=== PATIENT | female | born 1945 | race Caucasian/White ===

== ENCOUNTER 2018-12-30 04:50 | Inpatient (IN) ==
--- NOTE | 2018-12-20 09:29 | PAT Medication Instructions ---
Medication Instructions Date of Service December 20, 2018 Home Medications cholecalciferol (vitamin D3) 3 cap PO DAILY cyanocobalamin (vitamin B-12) 2,500 mcg SUBLINGUAL DAILY furosemide 25 mg PO UD PRN ibuprofen [Advil] 200 mg PO UD PRN losartan 50 mg PO QAM meclizine 25 mg PO DAILY PRN polyethylene glycol 3350 [Miralax] 17 g PO DAILY sennosides [Senokot] 2 tab PO HS PRN ASK your surgeon for instructions ibuprofen [Advil] 200 mg PO UD PRN DO NOT take the morning of surgery cholecalciferol (vitamin D3) 3 cap PO DAILY cyanocobalamin (vitamin B-12) 2,500 mcg SUBLINGUAL DAILY furosemide 25 mg PO UD PRN losartan 50 mg PO QAM polyethylene glycol 3350 [Miralax] 17 g PO DAILY Take morning of surgery With a small sip of water, OTHERWISE NOTHING TO EAT OR DRINK AFTER MIDNIGHT: meclizine 25 mg PO DAILY PRN (if needed) Take evening before surgery furosemide 25 mg PO UD PRN (if needed) meclizine 25 mg PO DAILY PRN (if needed) sennosides [Senokot] 2 tab PO HS PRN (if needed) Other Notes If you have any questions please call us at [phone] or [phone] or [phone] or [phone]
--- NOTE | 2018-12-20 10:12 | Anesthesiology Consultation ---
Date of Service December 20, 2018 Assessment & Plan (1) Encounter for pre-operative examination: - Patient anxious RE: SAB; discussed SAB vs. GA with patient. - PCP= 12/18/18= Elevated BP; losartan dose increased and patient recommended to monitor BP's. "Pt is medically cleared" - Cardio= 10/15/18= amlodipine discontinued and losartan/lasix initiated 2/2 leg edema [which has improved since med changes per evaluation at PAT visit subsequently]. Chart Review Chart Review: Acceptable Risk for Surgery and Patient seen in Pre Admission Testing Teaching & Discussion Pre-Anesthesia Teaching/Discussion Notes: Instructed NPO after midnight before surgery,except medications with 15 cc of water. Medication instructions provided according to the [facility] guidelines. History Surgery Operation Date: 12/30/18 14:00 Proposed Procedures p Right Total Knee Arthroplasty - Deangelo Connor MD Height/Weight Height: 5 ft 3 in Weight: 93.6 kg Allergies Allergy/AdvReac Type Severity Reaction Status Date / Time No Known Allergies Allergy Verified 12/16/18 08:54 Medications Home Medications Medication Instructions Recorded Confirmed Last Taken cholecalciferol (vitamin D3) 3 cap PO DAILY 12/16/18 12/16/18 Unknown [Vitamin D3] cyanocobalamin (vitamin B-12) 2,500 mcg SUBLINGUAL DAILY 12/16/18 12/16/18 Unknown [Vitamin B-12] furosemide 25 mg PO UD PRN 12/16/18 12/16/18 Unknown ibuprofen [Advil] 200 mg PO UD PRN 12/16/18 12/16/18 Unknown losartan 100 mg PO QAM 12/16/18 12/20/18 Unknown meclizine 25 mg PO DAILY PRN 12/16/18 12/16/18 Unknown polyethylene glycol 3350 [Miralax] 17 g PO DAILY 12/16/18 12/16/18 Unknown sennosides [Senokot] 2 tab PO HS PRN 12/16/18 12/16/18 Unknown Past Medical History Medical History Acid reflux CONTROLLED Bone spur of foot LEFT S/P CORTISONE INJECTION 12/06/18 H. pylori infection HX (2017) History of kidney stones History of pneumonia 10/2018 "RESOLVED" S/P ABX- F/U CXR UNREMARKABLE History of sleep apnea DX 20 YRS AGO BUT MORE RECENT SLEEP STUDY WAS "NORMAL" PER PT Hypertension Obesity Osteoarthritis Past Family History Family History Father Family history of bone cancer Brother Family history of colon cancer Sister Family history of thyroid cancer Other Family history of breast cancer in mother Past Surgical History Surgical History History of appendectomy History of colonoscopy History of dilatation and curettage History of gynecologic surgery ENTEROCELE REPAIR History of hysterectomy HYSTERECTOMY, RECTOCELE REPAIR AND BLADDER MESH Past Anesthesia History No Hx of Anesthesia Complications (EXCEPT PONV) and Other Son, sister, brother- PONV* History of PONV Yes Motion Sickness Screening History of Motion Sickness: Yes Social History Smoking Status: Never smoker Do You Dip or Chew Tobacco: No Hx Alcohol Use: No Hx Substance Use: No substance use type: does not use Exercise / Class Metabolic Activity II 4-5 Yardwork/Stairs/Walk up hill Review of Systems Patient denies chest pain, shortness of breath, dyspnea on exertion, cough, wheezing, palpitations. Physical Exam Vital Signs VITALS BP 144/91 P 81 TEMP 98.3 SP02 93%RA RESP 18 PHYSICAL Full neck and c-spine range of motion. Full TMJ range of motion. TMD 2.5 finger breaths Mallampati Score 1 Dentition: full dentures upper/lower; edentulous Lungs: clear throughout to auscultation Cardiac: regular rate and rhythm, no murmurs noted Spine: normal Carotid arteries: negative bruit Extremities: no edema Testing Electrocardiogram Date: 12/20/18 Findings: + NSR @ (70) Chest X-Ray Date: 11/11/18 Findings: + NAD Interval resolution of RLL pneumonitis from 10/19/18 CXR Echocardiogram Date: 12/26/17 EF 55%. No significant valvular disease. Stress Test Date: 12/26/17 Type: nuclear (Lexiscan) No evidence of myocardial ischemia or infarct. Lexiscan stress EKG was negative for myocardial ischemia. Study limited 2/2 significant breast attenuation. Baseline EKG with cannot rule out anterior IA per report. Laboratory Results 12/20/18 10:58 12/20/18 10:58 Blood Type B Positive 12/20/18 10:58 Antibody Screen NEGATIVE 12/20/18 10:58 PT 10.2 Seconds (9.0-12.0) 12/20/18 10:58 INR 1.0 (0.9-1.1) 12/20/18 10:58 APTT 23.6 Seconds (21.0-31.0) 12/20/18 10:58 Hemoglobin A1c 5.6 % (4.5-5.6) 12/20/18 10:58 Urine Color Yellow 12/20/18 10:58 Urine Appearance Clear (Clear) 12/20/18 10:58 Urine pH 7.0 (4.5-7.5) 12/20/18 10:58 Ur Specific [place] 1.012 (1.000-1.030) 12/20/18 10:58 Urine Protein Negative (Negative) 12/20/18 10:58 Urine Glucose (UA) Negative (Negative) 12/20/18 10:58 Urine Ketones Negative (Negative) 12/20/18 10:58 Urine Nitrite Negative (Negative) 12/20/18 10:58 Ur Leukocyte Esterase Negative (Negative) 12/20/18 10:58
[2018-12-20 12:21] LABS: Basophils # (auto) 0.03 K/uL (0-0.2); Basophils % (auto) 0.7 %; Eosinophils # (auto) 0.08 K/uL (0-0.5); Eosinophils % (auto) 1.8 %; Hematocrit (blood only) 42.4 % (37-47); Hemoglobin 13.9 g/dL (12.0-16.0); Immature Granulocytes # (auto) 0.01 K/uL (0.00-0.02); Immature Granulocytes % (auto) 0.2 %; Lymphocytes # (auto) 1.36 K/uL (1.2-3.4); Lymphocytes % (auto) 29.9 %; Mean Corpuscular Hgb Conc 32.8 g/dL (32-36); Mean Corpuscular Volume 88.7 fL (80-100); Mean Platelet Volume 9.9 fL (7.4-10.4); Monocytes # (auto) 0.32 K/uL (0.11-0.59); Neutrophils # (auto) 2.75 K/uL (1.4-6.5); Neutrophils % (auto) 60.4 %; Platelet Count 329 K/uL (130-400); RDW Standard Deviation 41.8 fL (36.4-46.3); Red Blood Count 4.78 M/uL (4.2-5.4); White Blood Count 4.55 K/uL (4.8-10.8)
[2018-12-20 12:30] LABS: Albumin Level 3.9 gm/dl (3.4-5.0); BUN Creatinine Ratio 28.7 (10-20); Calcium 9.9 mg/dl (8.5-10.1); Creatinine Clr Calc Pharmacy 95.8 ml/min; Est GFR (African American) 106.5; Est GFR (Non-African American) 91.9; Potassium 4.8 mmol/L (3.5-5.1)
[2018-12-20 12:32] LABS: Appearance Urine Clear (Clear); Bilirubin Urine Negative (Negative); Blood Urine Negative (Negative); Color Urine Yellow; Glucose Urine UA Negative (Negative); Ketones Urine Negative (Negative); Leukocyte Esterase Urine Negative (Negative); Nitrite Urine Negative (Negative); Protein Urine Negative (Negative); Specific Gravity Urine 1.012 (1.000-1.030); Urobilinogen Urine Negative (Negative)
[2018-12-20 12:33] LABS: Partial Thromboplastin Ratio 0.9; Partial Thromboplastin Time 23.6 Seconds (21.0-31.0); Prothrombin Time 10.2 Seconds (9.0-12.0)
[2018-12-20 12:37] LABS: Estimated Average Glucose 114 mg/dl; Hemoglobin A1C 5.6 % (4.5-5.6)
--- NOTE | 2018-12-29 13:06 | History and Physical Report ---
DATE OF ADMISSION: 12/30/2018 CHIEF COMPLAINT: Chronic right knee pain. HISTORY OF PRESENT ILLNESS: This is a 73-year-old female patient of Dr. Connor'domenico complaining of chronic right knee pain, longstanding, now progressively getting worse. The patient has failed conservative treatment including intraarticular injections, anti-inflammatory aqua therapy and the use of a wrap. The patient has increased pain with weightbearing activities and her pain does interfere with her activities of daily living. The patient has been diagnosed with end-stage osteoarthritis per clinical and radiographic exam and the patient wished to proceed with a right total knee arthroplasty. PAST MEDICAL HISTORY: Hypertension, hypercholesterolemia, pneumonia approximately 2 months ago, diabetes mellitus, osteoarthritis, kidney stones, acid reflux, dentures. SOCIAL HISTORY: Nonsmoker, nondrinker. PAST SURGICAL HISTORY: History of enterocele surgery, cystocele, rectocele, hysterectomy. FAMILY HISTORY: Noncontributory. REVIEW OF SYSTEMS: Chronic right knee pain and instability. Otherwise, denies any shortness of breath, chest pain, nausea, vomiting or any other new joint complaints. FAMILY HISTORY: Noncontributory. MEDICATIONS: 1. Vitamin D3 2000 units daily. 2. Vitamin B12 with folic acid daily. 3. Losartan 50 mg daily. 4. Furosemide 20 mg daily. 5. Senokot 8.6 mg 2 tablets daily for constipation as needed. 6. Tylenol 325 one every 4 hours as needed. 7. Fish oil 1000 mg daily. 8. Meclizine 25 mg 1 tablet 4 times daily. ALLERGIES: No known drug allergies. PHYSICAL EXAMINATION: GENERAL: Well-developed, well-nourished 73-year-old female in no acute distress. She is alert and oriented x3 and pleasant. HEENT: Normocephalic, atraumatic. Extraocular motions are intact. Pupils are equal, reactive to light. HEART: Regular rate and rhythm, no murmurs. LUNGS: Clear. ABDOMEN: Soft, nontender, bowel sounds present. EXTREMITIES: Right knee with a varus deformity and medial joint line tenderness. Mild effusion, positive crepitation, positive Sagrario's. Range of motion, negative 20-115, 5/5 strength. NEUROLOGICAL: Neurovascularly, she is intact in her right lower extremity. DIAGNOSES: Right knee end-stage osteoarthritis; hypertension; hypercholesterolemia; recent pneumonia approximately 2 months ago; diabetes mellitus, controlled with diet; osteoarthritis; kidney stones; acid reflux; dentures. PLAN: The patient was advised of her diagnosis. Indications, risks, benefits, and postop course have all been reviewed. The patient wished to proceed with a right total knee arthroplasty. Necessary consent forms, preoperative testing and clearances will be obtained.
[2018-12-30] MEDS ORDERED: TRANEXAMIC ACID 1,000 MG **IV Pre-op IV SCH (06:00)
[2018-12-30] MEDS ORDERED: ROPIVACAINE 0.5% HCL/PF 150 MG, BUPIVACAINE 0.5% MPF 30 ML, EPINEPHrine 30MG/30ML (OR U... INFIL SCH (06:00)
[2018-12-30] MEDS ORDERED: CEFAZOLIN 2000MG 2,000 MG/15 ML SYR IV SCH (06:00)
[2018-12-30] MEDS ORDERED: METOCLOPRAMIDE HCL 10 MG TABLET PO SCH (06:00)
[2018-12-30] MEDS ORDERED: CeleBREX 200 MG CAP PO SCH (06:00)
[2018-12-30] MEDS ORDERED: ACETAMINOPHEN 500 MG TAB PO SCH (06:00)
[2018-12-30] MEDS ORDERED: dexAMETHasone 4 MG TAB PO SCH (06:00)
[2018-12-30] MEDS ORDERED: LR 500ML BOLUS, THEN 15ML/HR IV SCH (06:00)
[2018-12-30] MEDS ORDERED: FAMOTIDINE 20 MG TAB PO SCH (06:00)
[2018-12-30] MEDS ORDERED: GABAPENTIN 300 MG PO SCH (06:00)
[2018-12-30] MEDS ORDERED: EPINEPHrine INJ 1 MG/ML AMP ONE (06:03)
[2018-12-30] MEDS ORDERED: ROPIVACAINE 0.5% 5 MG/ML 30 ML VIAL ONE (06:03)
[2018-12-30] MEDS ORDERED: BUPIVACAINE 0.5 % 5 MG/1 ML PF 10ML VIAL ONE ×2 (06:03)
[2018-12-30] MEDS ORDERED: fentaNYL citrate 100 MCG/2 ML VIAL ONE (06:26)
[2018-12-30] MEDS ORDERED: PROPOFOL IV EMULSION 10 MG/ML 20 ML VIAL IV ONE (06:26)
[2018-12-30] MEDS ORDERED: MIDAZOLAM HCL 1 MG/ML 2ML VIAL ONE (06:26)
[2018-12-30] MEDS ORDERED: TRANEXAMIC ACID 1,000 MG **IV Intra-op IV SCH (06:30)
[2018-12-30] MEDS ORDERED: ORTHO JOINT ANESTHETIC ONE (06:54)
[2018-12-30] MEDS ORDERED: POVIDONE-IODINE OP SOLN 30 ML BTL ONE (06:54)
[2018-12-30] MEDS ORDERED: BACITRACIN INJ 50,000 UNIT VIAL ONE (06:54)
--- NOTE | 2018-12-30 07:03 | History & Physical Bridge Note ---
Date of Service December 30, 2018 History & Physical Bridge Note I have examined the patient, reviewed the History & Physical and in the interval since the performance of the History & Physical I have noted the following changes of clinical significance: no changes noted
[2018-12-30] MEDS ORDERED: ONDANSETRON INJ 2 MG/ML 2 ML VIAL IV PRN ×2 (07:30→11:06)
[2018-12-30] MEDS ORDERED: ePHEDrine sulfate 50 MG/ML AMP IV PRN (07:30)
[2018-12-30] MEDS ORDERED: ATROPINE SULFATE 0.1 MG/ML 10ML SYR IV PRN (07:30)
[2018-12-30] MEDS ORDERED: HYDROmorphone INJ 1 MG/ML SYRINGE IV PRN (07:30)
[2018-12-30] MEDS ORDERED: fentaNYL citrate 100 MCG/2 ML VIAL IV PRN (07:30)
--- NOTE | 2018-12-30 08:46 | Operative Report ---
Post Operative Report Pre & Post Diagnosis Operation Date: 12/30/18 07:00 Pre-Op Diagnosis: Right Knee Osteoarthritis Post-Op Diagnosis: Right Knee Osteoarthritis Procedure Operation Date: 12/30/18 07:00 Actual Procedures p Right Total Knee Arthroplasty(Right) - Deangelo Connor MD Surgeon Deangelo Connor MD Word Processing Specialist Philip ROBLES Estimated Blood Loss 5 Findings Consistent with Post-Op Diagnosis Specimens Bone cuts Drains 2 Hemovac and superficial wound VAC Anesthesia Type Spinal MAC Complications none Disposition Accompanied Patient To Recovery: No Disposition: Recovery Room Indications 73 female with severe bilateral end-stage arthritis both knees. Patient is [id number] medial compartment bilaterally with the right knee being subluxed medially on the tibia and she has lateral tilt patellofemoral joint bilaterally. She has a moderately advanced patellofemoral DJD bilaterally. Description of Procedure Patient taken to the operating room the size under spinal MAC regional block anesthesia. Patient was placed supine on the operating table. A pneumatic tourniquet was placed about the right upper thigh. The right lower extremity was prepped and draped in sterile fashion. Knee exam demonstrated 15-20 degree flexion contracture with flexion to 120 degrees and no instability. The leg was elevated exsanguinated with an Esmarch bandage and pneumatic tourniquet was raised to 350 millimeters of mercury. Skin incised sharply in longitudinal fashion. When I entered the prepatellar bursa there was significant bursal fluid and chronic prepatellar bursitis. The prepatellar bursa was resected. Subcutaneous flaps elevated. Incision was made through the medial retinaculum extending up in the mid third of the quadriceps tendon and down to the medial tibial tubercle. Intra-articular findings demonstrated tricompartmental DJD large radial tear medial meniscus with complex posterior horn tear. Bone-on- bone with eburnated bone medial compartment grade 3 DJD patellofemoral joint. Patient lateral tracking patella. The [employer] total knee arthroplasty system was used. To expose the knee the infrapatellar fat pad was resected. The meniscal remnants and cruciate ligaments were resected. The anterior fat pad over the femur in the area of the anterior flange of the femoral component was resected. Lateral synovial bands release. The femur was exposed. An intramedullary drill hole was made into the canal. A guide daniela was placed. Distal femoral cutting guide was adjusted to resect a 5 degree valgus cut with 10 millimeters distal femur resected. The knee was extended and a subperiosteal peel lateral release was performed around the patella. Patella width was measured and width was reproduced using a freehand cut technique and a 33 patella component. The 3 drill holes were made and the excess lateral facet was beveled off to prevent any impingement. Attention was taken back to the femur which was exposed with retractors and the femoral sizing guide was pinned in position. The drill holes were placed in 3 of external rotation to match epicondylar axis. Femur sized for a 4 component. She did have some AP ML mismatch so we used a 1.[address] the femur more anterior so the 4 could fit without notching. The 4-in-1 cutting block was placed and then the anterior posterior and chamfer cuts are made. The tibia was then subluxed. The external tibial cutting guide was just to make a perpendicular cut to the long axis of the tibia below the most deficient bone loss side. A lamina vice president underwriting was used and the flexion extension gaps were balanced. All posterior osteophytes removed. All meniscal remnants were resected. The tibia exposed and the trial tibial component size 3 was externally rotated in line with the tibial tubercle and pinned in position. The punch for stem was used. The notch cutting device was centered appropriately and the femoral notch cut was made. The femoral trial was inserted. Trial tibial inserts were placed and size 13 gave balanced ligaments through flexion and extension. Patella tracking was assessed. The patella tracked with just some slight liftoff so I went ahead and did a lateral release leaving the synovium intact and the patella tracked completely centrally.. The trial components were then removed and the orthomix anesthetic cocktail was injected per protocol. The knee was then copiously irrigated with pulsatile lavage antibiotic solution. Final components were then cemented with Simplex cement. Final components were 4 right posterior stabilized Sara triathlon femoral component. 3 primary tibial baseplate. X3 poly-patella and tibial implants with 33 x 9 and 13 mm posterior stabilized used. While the cement cured the Betadine soak was used per protocol. After cement cured further pulsatile lavage irrigation performed and 2 Hemovac drains were brought out laterally. The quadriceps tendon and medial retinaculum were closed with figure of 8 #1 Vicryl sutures. The knee was taken through full range of motion and the repair was secure. The subcutaneous tissues were closed with 2-0 Vicryl sutures. Skin was closed with estrella. Rocio superficial wound VAC was applied. Patient procedure well. Philip ROBLES was my physician special ed assistant who assisted in patient positioning prepping and draping,leg positioning ,soft tissue retraction and instrument management and participated in the closing and will participate in postoperative care of the patient. The patient tolerated the procedure well. I attest to the content of the Intraoperative Record and any orders documented therein. Any exceptions are noted below.
--- NOTE | 2018-12-30 09:51 | XRay Report ---
XR knee RT 2V routine CLINICAL HISTORY: Surgical Post Op COMPARISON: None. DISCUSSION: There are postsurgical changes of a total right knee arthroplasty and patellar resurfacin g. The femoral and tibial components appear well seated. Overlying skin estrella and surgical drains a re evident. There is air within the soft tissues consistent with recent surgery. IMPRESSION: Postsurgical changes of a total right knee arthroplasty. Electronically signed by: Simone Gonzales M.D. 12/30/2018 9:49 AM
--- NOTE | 2018-12-30 10:36 | Anesthesiology Progress Note ---
Date of Service December 30, 2018 Anesthesia Post Procedure Vital Signs Vital Signs: Temp Pulse Pulse Resp BP BP Pulse Ox 12/30/18 10:21 76 129/75 93 12/30/18 10:20 82 93 12/30/18 10:16 79 126/80 94 12/30/18 10:15 73 77 21 126/80 97 12/30/18 10:11 76 131/77 95 12/30/18 10:10 74 99 12/30/18 10:06 80 123/72 91 12/30/18 10:05 79 77 15 123/72 92 12/30/18 10:01 80 133/70 92 12/30/18 10:00 83 92 12/30/18 09:57 36.4 C L 78 17 132/67 93 12/30/18 09:56 82 132/67 93 12/30/18 09:55 79 94 12/30/18 09:51 79 128/71 94 12/30/18 09:50 79 94 12/30/18 09:47 78 94 12/30/18 09:46 78 118/74 94 12/30/18 09:45 78 96 12/30/18 09:41 78 130/71 94 12/30/18 09:40 79 94 12/30/18 09:36 80 134/69 91 12/30/18 09:35 82 91 12/30/18 09:31 84 129/67 92 12/30/18 09:30 79 93 12/30/18 09:26 79 131/71 92 12/30/18 09:25 80 92 12/30/18 09:21 79 116/76 93 12/30/18 09:20 80 93 12/30/18 09:15 36.2 C L 80 82 13 129/76 129/76 93 12/30/18 05:35 36.1 C L 81 20 162/83 H 96 Notes Mental Status: alert / awake / arousable and participated in evaluation Nausea / Vomiting: adequately controlled Pain: adequately controlled Airway Patency, RR, SpO2: stable & adequate BP & HR: stable & adequate Hydration State: stable & adequate Neuraxial Anesthesia: was administered and sensory block is resolving Anesthetic Complications: no major complications apparent and Pt Satisfied with anesthetic care
[2018-12-30] MEDS ORDERED: BISACODYL 10 MG SUPP PR PRN (11:06)
[2018-12-30] MEDS ORDERED: MECLIZINE HCL 25 MG TAB PO PRN (11:06)
[2018-12-30] MEDS ORDERED: OXYCODONE HCL IR 5 MG TAB (IMMEDIATE RELEASE) PO PRN (11:06)
[2018-12-30] MEDS ORDERED: SENNA 8.6 MG TAB PO PRN (11:06)
[2018-12-30] MEDS ORDERED: HYDROmorphone INJ 0.5 MG/0.5 ML SYR IV PRN (11:06)
[2018-12-30] MEDS ORDERED: NALOXONE HCL 0.4 MG/1 ML VIAL/CARP IV PRN (11:06)
[2018-12-30] MEDS ORDERED: MAGNESIUM HYDROXIDE SUSP 30 ML UDC PO PRN (11:06)
[2018-12-30] MEDS ORDERED: METOCLOPRAMIDE HCL INJ 5 MG/ML 2 ML VIAL IV PRN (11:06)
[2018-12-30] MEDS ORDERED: SODIUM CHLORIDE 0.9% 1000ML 1,000 ML IV SCH (11:20)
--- NOTE | 2018-12-30 12:58 | Hospitalist Progress Note ---
Date of Service December 30, 2018 Assessment & Plan (1) DM2 (diabetes mellitus, type 2): A1c 5.8 without home meds - right now essentially she is a mild prediabetic. should require no specific treatment at this time (2) Essential hypertension: follow BP, adjust meds as needed. current readings acceptable (3) Hypercholesterolemia: on fish oil at home. not on statin, but does not appear to have had vascular event. will defer to PCP in regards to further management (4) DVT prophylaxis: aspirin bid, per ortho (5) Discharge planning issues: per ortho Subjective doing well. no complaints. outpt labs reviewed - A1c 5.8% last month. pain under control, went to the bathroom, eating lunch Review of Systems All systems reviewed & are unremarkable except as noted in HPI & below Physical Exam 2 Vital Signs (Past 24 Hours): Last Vital Signs Temp 36.6 C 12/30/18 11:50 Pulse 73 12/30/18 11:50 Resp 14 12/30/18 11:50 BP 122/80 12/30/18 11:50 Pulse Ox 93 12/30/18 11:50 Physical Exam: gen - pleasant nad, heent nc at mmm, breathing unlabored no accessory muscles good effort, skin no rashes no pallor or icterus, neuro no focal deficits
[2018-12-30] MEDS: ACETAMINOPHEN 500 MG TAB PO SCH ×2 (13:38→21:32)
[2018-12-30] MEDS: TRAMADOL HCL 50 MG TABLET PO PRN ×3 (13:41→22:15)
[2018-12-30] MEDS: CEFAZOLIN 2000MG 2,000 MG/15 ML SYR IV SCH ×2 (14:39→22:00)
[2018-12-30] MEDS: DOCUSATE SODIUM 100 MG CAP PO SCH (20:21)
[2018-12-30] MEDS: ASPIRIN 81 MG ECTAB PO SCH (20:21)
[2018-12-30] MEDS: SENNA 8.6 MG TAB PO SCH (20:22)
[2018-12-30] MEDS: CeleBREX 200 MG CAP PO SCH (20:22)
[2018-12-31] MEDS: TRAMADOL HCL 50 MG TABLET PO PRN ×5 (03:06→22:51)
[2018-12-31] MEDS: ACETAMINOPHEN 500 MG TAB PO SCH ×3 (05:44→21:17)
[2018-12-31 06:07] LABS: Hematocrit (blood only) 35.4 % (37-47); Hemoglobin 11.6 g/dL (12.0-16.0); Mean Corpuscular Hgb Conc 32.8 g/dL (32-36); Mean Corpuscular Volume 89.4 fL (80-100); Mean Platelet Volume 9.4 fL (7.4-10.4); Platelet Count 252 K/uL (130-400); RDW Coefficient of Variation 12.8 % (11.5-14.5); RDW Standard Deviation 41.7 fL (36.4-46.3); Red Blood Count 3.96 M/uL (4.2-5.4)
[2018-12-31 06:35] LABS: BUN Creatinine Ratio 22.8 (10-20); Calcium 9.1 mg/dl (8.5-10.1); Creatinine Clr Calc Pharmacy 59.4 ml/min; Potassium 4.3 mmol/L (3.5-5.1)
--- NOTE | 2018-12-31 07:39 | Anesthesiology Progress Note ---
Date of Service December 31, 2018 Anesthesia Post Procedure Vital Signs Vital Signs: Temp Pulse Pulse Pulse Resp BP BP 12/31/18 02:50 36.5 C 80 16 120/73 12/30/18 23:07 36.7 C 76 16 113/61 12/30/18 19:53 36.3 C L 77 18 126/78 12/30/18 15:10 36.4 C L 73 18 134/86 12/30/18 13:50 36.8 C 82 17 142/83 H 12/30/18 12:50 37.1 C 80 16 120/80 12/30/18 11:50 36.6 C 73 14 122/80 12/30/18 11:20 36.4 C L 77 16 146/92 H 12/30/18 10:50 36.6 C 76 18 127/76 12/30/18 10:36 84 128/80 12/30/18 10:35 79 12/30/18 10:31 80 131/72 12/30/18 10:30 81 12/30/18 10:26 80 133/74 12/30/18 10:25 81 12/30/18 10:22 80 12/30/18 10:21 76 129/75 12/30/18 10:20 82 12/30/18 10:16 79 126/80 12/30/18 10:15 73 77 21 126/80 12/30/18 10:11 76 131/77 12/30/18 10:10 74 12/30/18 10:06 80 123/72 12/30/18 10:05 79 77 15 123/72 12/30/18 10:01 80 133/70 12/30/18 10:00 83 12/30/18 09:57 36.4 C L 78 17 132/67 12/30/18 09:56 82 132/67 12/30/18 09:55 79 12/30/18 09:51 79 128/71 12/30/18 09:50 79 12/30/18 09:47 78 12/30/18 09:46 78 118/74 12/30/18 09:45 78 12/30/18 09:41 78 130/71 12/30/18 09:40 79 12/30/18 09:36 80 134/69 12/30/18 09:35 82 12/30/18 09:31 84 129/67 12/30/18 09:30 79 12/30/18 09:26 79 131/71 12/30/18 09:25 80 12/30/18 09:21 79 116/76 12/30/18 09:20 80 12/30/18 09:15 36.2 C L 80 82 13 129/76 129/76 Pulse Ox 12/31/18 02:50 94 12/30/18 23:07 93 12/30/18 19:53 95 12/30/18 15:10 93 12/30/18 13:50 95 12/30/18 12:50 95 12/30/18 11:50 93 12/30/18 11:20 96 12/30/18 10:50 98 12/30/18 10:36 96 12/30/18 10:35 98 12/30/18 10:31 90 12/30/18 10:30 92 12/30/18 10:26 91 12/30/18 10:25 94 12/30/18 10:22 99 12/30/18 10:21 93 12/30/18 10:20 93 12/30/18 10:16 94 12/30/18 10:15 97 12/30/18 10:11 95 12/30/18 10:10 99 12/30/18 10:06 91 12/30/18 10:05 92 12/30/18 10:01 92 12/30/18 10:00 92 12/30/18 09:57 93 12/30/18 09:56 93 12/30/18 09:55 94 12/30/18 09:51 94 12/30/18 09:50 94 12/30/18 09:47 94 12/30/18 09:46 94 12/30/18 09:45 96 12/30/18 09:41 94 12/30/18 09:40 94 12/30/18 09:36 91 12/30/18 09:35 91 12/30/18 09:31 92 12/30/18 09:30 93 12/30/18 09:26 92 12/30/18 09:25 92 12/30/18 09:21 93 12/30/18 09:20 93 12/30/18 09:15 93 Pain Intensity Knee: Pain Intensity: 7 Notes Mental Status: alert / awake / arousable and participated in evaluation Patient Amnestic to Procedure: Yes Nausea / Vomiting: adequately controlled Pain: adequately controlled Airway Patency, RR, SpO2: stable & adequate BP & HR: stable & adequate Hydration State: stable & adequate Neuraxial Anesthesia: was administered and sensory block resolved Anesthetic Complications: no major complications apparent
--- NOTE | 2018-12-31 07:42 | Orthopedic Progress Note ---
Date of Service December 31, 2018 Assessment & Plan (1) Right knee DJD: POD #1, Right TKA PT/ OT DVT proph- ASA D/C planning- [place] likely . Appreciate medicine input Subjective POD #1, Doing well, denies SOB, CP, N/V, pain controlled well. Physical Exam Vital Signs (Past 24 Hours): Last Vital Signs Temp 36.5 C 12/31/18 02:50 Pulse 80 12/31/18 02:50 Resp 16 12/31/18 02:50 BP 120/73 12/31/18 02:50 Pulse Ox 94 12/31/18 02:50 Physical Exam: Right knee dressing c/d/i, no drainage, toes and ankle mobile, no calf tenderness, A&Ox3.
[2018-12-31] MEDS: ASPIRIN 81 MG ECTAB PO SCH ×2 (08:39→21:17)
[2018-12-31] MEDS: CeleBREX 200 MG CAP PO SCH ×2 (08:39→21:17)
[2018-12-31] MEDS: DOCUSATE SODIUM 100 MG CAP PO SCH ×2 (08:39→21:17)
[2018-12-31] MEDS: MULTIVITAMIN TAB PO SCH (08:39)
[2018-12-31] MEDS: LOSARTAN POTASSIUM 50 MG TAB PO SCH (08:40)
[2018-12-31] MEDS: CYANOCOBALAMIN (VITAMIN B-12) 2,500 MCG TAB.SUBL SL SCH (08:40)
[2018-12-31] MEDS: POLYETHYLENE (MIRALAX) 17 GM PACK PO SCH (08:40)
[2018-12-31] MEDS: CHOLECALCIFEROL 1,000 UNITS TAB PO SCH (08:40)
--- NOTE | 2018-12-31 19:38 | Hospitalist Progress Note ---
Date of Service December 31, 2018 Assessment & Plan (1) DM2 (diabetes mellitus, type 2): A1c 5.8 without home meds - right now essentially she is a mild prediabetic. no specific treatment at this time (2) Essential hypertension: current readings acceptable, continue current care (3) Hypercholesterolemia: on fish oil at home. not on statin, but does not appear to have had vascular event. will defer to PCP in regards to further management, obviously no acute issues in regards to this (4) DVT prophylaxis: aspirin bid, per ortho (5) Discharge planning issues: per ortho Subjective Resting comfortably no problems noted Physical Exam Vital Signs (Past 24 Hours): Last Vital Signs Temp 36.3 C L 12/31/18 15:32 Pulse 69 12/31/18 15:32 Resp 17 12/31/18 15:32 BP 95/60 L 12/31/18 15:32 Pulse Ox 92 12/31/18 15:32 Physical Exam: Sleeping comfortably no distress, breathing is unlabored no accessory muscle use, skin shows no rashes no pallor or icterus.
[2018-12-31] MEDS: SENNA 8.6 MG TAB PO SCH (21:17)
[2019-01-01] MEDS: TRAMADOL HCL 50 MG TABLET PO PRN ×4 (03:21→17:49)
[2019-01-01] MEDS: ACETAMINOPHEN 500 MG TAB PO SCH ×3 (05:57→21:17)
[2019-01-01 07:01] LABS: Hematocrit (blood only) 36.2 % (37-47); Hemoglobin 11.8 g/dL (12.0-16.0); Mean Corpuscular Hgb Conc 32.6 g/dL (32-36); Mean Corpuscular Volume 88.5 fL (80-100); Mean Platelet Volume 9.4 fL (7.4-10.4); Platelet Count 271 K/uL (130-400); RDW Coefficient of Variation 13.1 % (11.5-14.5); RDW Standard Deviation 42.1 fL (36.4-46.3); Red Blood Count 4.09 M/uL (4.2-5.4)
[2019-01-01 07:25] LABS: BUN Creatinine Ratio 25.3 (10-20); Calcium 9.3 mg/dl (8.5-10.1); Creatinine Clr Calc Pharmacy 44.9 ml/min; Est GFR (African American) 52.1; Est GFR (Non-African American) 44.9; Potassium 4.2 mmol/L (3.5-5.1)
[2019-01-01] MEDS: CeleBREX 200 MG CAP PO SCH ×2 (08:57→21:17)
[2019-01-01] MEDS: ASPIRIN 81 MG ECTAB PO SCH ×2 (08:57→21:17)
[2019-01-01] MEDS: MULTIVITAMIN TAB PO SCH (08:57)
[2019-01-01] MEDS: CHOLECALCIFEROL 1,000 UNITS TAB PO SCH (08:57)
[2019-01-01] MEDS: CYANOCOBALAMIN (VITAMIN B-12) 2,500 MCG TAB.SUBL SL SCH (08:57)
[2019-01-01] MEDS: LOSARTAN POTASSIUM 50 MG TAB PO SCH (08:58)
[2019-01-01] MEDS: POLYETHYLENE (MIRALAX) 17 GM PACK PO SCH (08:58)
[2019-01-01] MEDS: DOCUSATE SODIUM 100 MG CAP PO SCH ×2 (08:58→21:17)
--- NOTE | 2019-01-01 10:14 | Orthopedic Progress Note ---
Date of Service January 01, 2019 Assessment & Plan (1) Right knee DJD: POD #2, Right TKA PT/ OT DVT proph- ASA D/C planning- [place] tomorrow. Appreciate medicine input Subjective POD #1, Doing well, denies SOB, CP, N/V, pain controlled well. Physical Exam Vital Signs (Past 24 Hours): Last Vital Signs Temp 36.5 C 01/01/19 08:00 Pulse 65 01/01/19 08:00 Resp 19 01/01/19 08:00 BP 138/82 01/01/19 08:00 Pulse Ox 93 01/01/19 08:00 Physical Exam: Right knee prevena in tact, no erythema, no drainage, toes and ankle mobile, no calf tenderness, A&Ox3.
--- NOTE | 2019-01-01 16:34 | Hospitalist Progress Note ---
Date of Service January 01, 2019 Assessment & Plan (1) DM2 (diabetes mellitus, type 2): A1c 5.8 without home meds - right now essentially she is a mild prediabetic. no specific treatment at this time, educated extensively on the pathophysiology and management and heavy lifestyle influence on type 2 diabetes. (2) Essential hypertension: current readings show acceptable control, continue current care (3) Hypercholesterolemia: on fish oil at home. not on statin, will defer to PCP on utility of this in the context of her not having had a previous vascular event (4) DVT prophylaxis: Continue aspirin bid, per ortho (5) Discharge planning issues: Patient is planning on going to [place] to rehab. Subjective Feeling okay now, but earlier she was feeling a bit weak and shaky. She related it might be from her sugar which was 88, but after discussion we discussed that that would essentially be a normal sugar. No other acute complaints. Pain is doing well. Her plan is to go to [place] to rehab. Review of Systems Review of Systems: All systems reviewed & are unremarkable except as noted in HPI & below Physical Exam Physical Exam: General she is awake alert oriented x3 pleasant no distress. HEENT normal cephalic atraumatic mucous members moist. Breathing is unlabored no accessory muscle use. Skin shows no rashes no pallor or icterus. Neuro shows cranial nerves II through XII are grossly intact gross motor and sensory intact. Results & Data Vital Signs (Past 12 Hours) Vital Signs Temp Pulse Pulse Resp BP Pulse Ox 01/01/19 15:46 36.4 C L 66 18 120/68 93 01/01/19 11:24 36.7 C 67 19 143/82 H 92 01/01/19 08:00 36.5 C 65 19 138/82 93
[2019-01-01] MEDS: SENNA 8.6 MG TAB PO SCH (21:17)
[2019-01-02] MEDS: ACETAMINOPHEN 500 MG TAB PO SCH (05:25)
[2019-01-02] MEDS: POLYETHYLENE (MIRALAX) 17 GM PACK PO SCH (07:31)
[2019-01-02] MEDS: TRAMADOL HCL 50 MG TABLET PO PRN (07:31)
[2019-01-02] MEDS: ASPIRIN 81 MG ECTAB PO SCH (07:32)
[2019-01-02] MEDS: CeleBREX 200 MG CAP PO SCH (07:32)
[2019-01-02] MEDS: CHOLECALCIFEROL 1,000 UNITS TAB PO SCH (07:33)
[2019-01-02] MEDS: DOCUSATE SODIUM 100 MG CAP PO SCH (07:33)
[2019-01-02] MEDS: LOSARTAN POTASSIUM 50 MG TAB PO SCH (07:33)
[2019-01-02] MEDS: MULTIVITAMIN TAB PO SCH (07:33)
[2019-01-02] MEDS: CYANOCOBALAMIN (VITAMIN B-12) 2,500 MCG TAB.SUBL SL SCH (07:34)
--- NOTE | 2019-01-02 07:42 | Orthopedic Progress Note ---
Date of Service January 02, 2019 Assessment & Plan (1) Right knee DJD: POD #3, Right TKA PT/ OT DVT proph- ASA D/C planning- [place] today. Appreciate medicine input Subjective POD #3, Doing well, denies SOB, CP, N/V, pain controlled well. Physical Exam Physical Exam: Right knee prevena in tact, no erythema, no calf tenderness, toes and ankle mobile. A&Ox3. Results & Data Vital Signs (Past 12 Hours) Vital Signs Temp Pulse Resp BP BP Pulse Ox 01/02/19 06:26 36.7 C 69 16 111/71 93 01/01/19 23:08 36.3 C L 73 16 111/49 L 95
--- NOTE | 2019-01-02 18:09 | Hospitalist Progress Note ---
Date of Service January 02, 2019 Assessment & Plan (1) DM2 (diabetes mellitus, type 2): A1c 5.6 without home meds -- discussed pathophys and critical role of lifestyle change -- right now she appears to be doing well. emphasized on 01/01 to continue and that with additional exercise as she rehabs, she can likely be an "ex diabetic" (2) Essential hypertension: current readings show acceptable control, continue current care w current meds at SNF (3) Hypercholesterolemia: on fish oil at home. not on statin, will defer to PCP on utility of this in the context of her not having had a previous vascular event (4) DVT prophylaxis: Continue aspirin bid, per ortho (5) Discharge planning issues: Patient is planning on going to [place] to rehab. stable for this today Subjective feeling good ready to go [facility] no new complaints Review of Systems Review of Systems: All systems reviewed & are unremarkable except as noted in HPI & below Physical Exam Physical Exam: vitals noted nad breathing unlabored walking smoothly with walker. no pallor or icterus Results & Data Vital Signs (Past 12 Hours) Vital Signs Temp Pulse Resp BP Pulse Ox 01/02/19 07:55 36.7 C 69 16 111/71 93 01/02/19 06:26 36.7 C 69 16 111/71 93
--- NOTE | 2019-01-11 21:58 | Discharge Summary ---
HISTORY OF PRESENT ILLNESS: This is a 73-year-old female patient of Dr. Connor's complaining of chronic right knee pain, longstanding, now progressively getting worse. The patient failed conservative treatment and has elected to proceed with a right total knee arthroplasty. PAST MEDICAL HISTORY: Hypertension, hypercholesterolemia, pneumonia approximately 2 months preop, diabetes mellitus, osteoarthritis, kidney stones, acid reflux and dentures. POSTOPERATIVE COURSE: The patient underwent a right total knee arthroplasty on 12/30/2018. She was followed closely with medical consultation, DVT prophylaxis in the form of aspirin and physical therapy. The patient did very well postoperatively and she was discharged on postoperative day #2. PHYSICAL EXAMINATION: On discharge, right knee superficial wound VAC was clean, dry and intact. There was no redness or drainage. She had no calf tenderness. Negative Homans sign. Her toes and ankles were mobile. Neurologically and neurovascularly she is intact in her right lower extremity. DIAGNOSES: Status post right total knee arthroplasty with application of wound VAC. She has a history of hypertension, hypercholesterolemia, recent pneumonia cleared, diabetes mellitus, osteoarthritis, kidney stones, acid reflux and dentures. PLAN: The patient was discharged to [facility] on postoperative day #3. She will continue her preadmission medications with the addition of pain medication and the continuation of aspirin for DVT prophylaxis. The patient will follow up with Dr. Connor as an outpatient as scheduled.
== END 2019-01-02 13:00 | DRG 470 ==
LOC: ASU 04:50 → 3E 10:53
DX: Z79.899 Other long term (current) drug therapy; E66.9 Obesity, unspecified; E78.00 Pure hypercholesterolemia, unspecified; X58.XXXA Exposure to other specified factors, initial encounter; S83.131A Medial subluxation of proximal end of tibia, right knee, initial encounter; I10 Essential (primary) hypertension; M17.0 Bilateral primary osteoarthritis of knee; Z68.36 Body mass index [BMI] 36.0-36.9, adult; E11.9 Type 2 diabetes mellitus without complications

== ENCOUNTER 2019-06-11 08:36 | Inpatient (IN) ==
[2019-05-15 17:48] LABS: Basophils # (auto) 0.03 K/uL (0-0.2); Basophils % (auto) 0.7 %; Eosinophils # (auto) 0.13 K/uL (0-0.5); Eosinophils % (auto) 3.1 %; Hematocrit (blood only) 41.2 % (37-47); Hemoglobin 13.6 g/dL (12.0-16.0); Immature Granulocytes # (auto) 0.01 K/uL (0.00-0.02); Immature Granulocytes % (auto) 0.2 %; Lymphocytes # (auto) 1.19 K/uL (1.2-3.4); Lymphocytes % (auto) 28.1 %; Mean Corpuscular Hemoglobin 29.2 pg (25-34); Mean Corpuscular Volume 88.6 fL (80-100); Monocytes # (auto) 0.47 K/uL (0.11-0.59); Monocytes % (auto) 11.1 %; Neutrophils % (auto) 56.8 %; Platelet Count 333 K/uL (130-400); RDW Coefficient of Variation 12.9 % (11.5-14.5); RDW Standard Deviation 41.4 fL (36.4-46.3); Red Blood Count 4.65 M/uL (4.2-5.4); White Blood Count 4.23 K/uL (4.8-10.8)
[2019-05-15 17:50] LABS: Appearance Urine Clear (Clear); Bilirubin Urine Negative (Negative); Blood Urine Negative (Negative); Color Urine Yellow; Glucose Urine UA Negative (Negative); Ketones Urine Negative (Negative); Leukocyte Esterase Urine Negative (Negative); Nitrite Urine Negative (Negative); Protein Urine Negative (Negative); Specific Gravity Urine 1.013 (1.000-1.030); Urobilinogen Urine Negative (Negative)
[2019-05-15 17:54] LABS: Albumin Level 3.9 gm/dl (3.4-5.0); BUN Creatinine Ratio 20.7 (10-20); Calcium 9.8 mg/dl (8.5-10.1); Creatinine Clr Calc Pharmacy 73.3 ml/min; Est GFR (Non-African American) 81.1; Potassium 3.9 mmol/L (3.5-5.1)
[2019-05-15 18:00] LABS: Partial Thromboplastin Ratio 0.9; Partial Thromboplastin Time 23.4 Seconds (21.0-31.0)
[2019-05-16 06:06] LABS: Estimated Average Glucose 117 mg/dl; Hemoglobin A1C 5.7 % (4.5-5.6)
--- NOTE | 2019-05-22 11:10 | Anesthesiology Consultation ---
Date of Service May 22, 2019 uneventful R TKA under block and spinal, December 2018. Assessment & Plan (1) Encounter for pre-operative examination: Chart Review Chart Review: Acceptable Risk for Surgery and Patient NOT seen in Pre Admission Testing Consults Requested none History Surgery Operation Date: 06/11/19 10:40 Proposed Procedures p Left Total Knee Arthroplasty - Deangelo Connor MD Height/Weight Height: 5 ft 3 in Weight: 92.986 kg Allergies Allergy/AdvReac Type Severity Reaction Status Date / Time No Known Allergies Allergy Verified 04/29/19 11:31 Medications Home Medications Medication Instructions Recorded Confirmed Last Taken cholecalciferol (vitamin D3) 3 cap PO DAILY 12/16/18 04/29/19 12/29/18 08:30 [Vitamin D3] cyanocobalamin (vitamin B-12) 2,500 mcg SUBLINGUAL DAILY 12/16/18 04/29/19 12/28/18 08:30 [Vitamin B-12] losartan 100 mg PO QAM 12/16/18 04/29/19 12/29/18 08:30 meclizine 25 mg PO DAILY PRN 12/16/18 04/29/19 12/29/18 21:00 polyethylene glycol 3350 [Miralax] 17 g PO QAM 12/16/18 04/29/19 12/28/18 20:00 sennosides [Senokot] 2 tab PO HS PRN 12/16/18 04/29/19 12/29/18 21:00 tramadol 50 - 100 mg PO Q4H PRN #40 tab 01/02/19 04/29/19 Unknown famotidine 20 mg PO TID PRN 04/29/19 04/29/19 Unknown hydrochlorothiazide 12.5 mg PO QAM 04/29/19 04/29/19 Unknown hydrochlorothiazide 25 mg PO QAM 04/29/19 04/29/19 Unknown ibuprofen 600 mg PO TID PRN 04/29/19 04/29/19 Unknown Past Medical History Medical History Acid reflux CONTROLLED Bone spur of foot LEFT S/P CORTISONE INJECTION 12/06/18 H. pylori infection HX (2017) History of kidney stones History of pneumonia 10/2018 "RESOLVED" S/P ABX- F/U CXR UNREMARKABLE History of sleep apnea DX 20 YRS AGO BUT MORE RECENT SLEEP STUDY WAS "NORMAL" PER PT Hypertension Nausea and vomiting after administration of anesthetic agent Obesity Osteoarthritis Peptic ulcer disease HX Past Family History Family History Father Family history of bone cancer Brother Family history of colon cancer Sister Family history of thyroid cancer Other Family history of breast cancer in mother Past Surgical History Surgical History History of lumpectomy of left breast (Acute) History of appendectomy History of colonoscopy History of dilatation and curettage History of esophagogastroduodenoscopy (EGD) History of gynecologic surgery ENTEROCELE REPAIR History of hysterectomy HYSTERECTOMY, RECTOCELE REPAIR AND BLADDER MESH History of total knee replacement RIGHT Social History Smoking Status: Never smoker Do You Dip or Chew Tobacco: No Hx Alcohol Use: No Hx Substance Use: No substance use type: does not use Testing Laboratory Results 05/15/19 11:03 05/15/19 11:03 PT 10.0 Seconds (9.0-12.0) 05/15/19 11:03 INR 1.0 (0.9-1.1) 05/15/19 11:03 APTT 23.4 Seconds (21.0-31.0) 05/15/19 11:03 Hemoglobin A1c 5.7 % (4.5-5.6) H 05/15/19 11:03 Urine Color Yellow 05/15/19 11:03 Urine Appearance Clear (Clear) 05/15/19 11:03 Urine pH 7.0 (4.5-7.5) 05/15/19 11:03 Ur Specific [place] 1.013 (1.000-1.030) 05/15/19 11:03 Urine Protein Negative (Negative) 05/15/19 11:03 Urine Glucose (UA) Negative (Negative) 05/15/19 11:03 Urine Ketones Negative (Negative) 05/15/19 11:03 Urine Nitrite Negative (Negative) 05/15/19 11:03 Ur Leukocyte Esterase Negative (Negative) 05/15/19 11:03 Blood Type B Positive 05/15/19 11:03 Antibody Screen NEGATIVE 05/15/19 11:03 Electrocardiogram Date: 12/20/18 Findings: + NSR @ (70)
--- NOTE | 2019-06-10 18:46 | History and Physical Report ---
DATE OF ADMISSION: 06/11/2019 CHIEF COMPLAINT: Chronic left knee pain. HISTORY OF PRESENT ILLNESS: This is a 73-year-old female patient of Dr. Connor'domenico complaining of chronic left knee pain, longstanding, now progressively getting worse. The patient has failed conservative treatment including intra-articular injections, anti-inflammatory, water therapy, and the use of a brace. The patient has increased pain with weightbearing activities and her pain does interfere with her activities of daily living. The patient has been diagnosed with end-stage osteoarthritis per clinical and radiographic exams. The patient wished to proceed with a left total knee arthroplasty. PAST MEDICAL HISTORY: Hypertension, hypercholesterolemia. SOCIAL HISTORY: Nonsmoker, nondrinker. PAST SURGICAL HISTORY: Right knee replacement, bladder tuck surgery, D and C, appendectomy and hysterectomy. FAMILY HISTORY: Noncontributory. REVIEW OF SYSTEMS: Chronic left knee pain, otherwise denies any shortness of breath, chest pain, nausea, vomiting or any other joint complaints. SOCIAL HISTORY: Nonsmoker, nondrinker. MEDICATIONS: 1. Vitamin D3 2000 units daily. 2. Vitamin B12 500 mcg with folic acid 400 mcg 1 tablet daily. 3. Losartan 50 mg daily. 4. Furosemide 20 mg daily. 5. Senokot 8.6 mg 2 tablets daily as needed 6. Tylenol as needed. 7. Fish oil 1000 mg daily. 8. Meclizine 25 mg 4 times daily. ALLERGIES: No known drug allergies. PHYSICAL EXAMINATION: GENERAL: Well-developed, well-nourished 73-year-old female in no acute distress. She is alert and oriented x3 and pleasant. HEENT: Normocephalic, atraumatic. Extraocular motions are intact. Pupils are equal and reactive to light. HEART: Regular rate and rhythm, no murmurs are appreciated. LUNGS: Clear. ABDOMEN: Soft and nontender. Bowel sounds present. EXTREMITIES: Left knee reveals a limited range of motion of 0-125. The patient has medial joint line tenderness with mild effusion, crepitation with passive range of motion, 5/5 strength. Neurologically and neurovascularly, she is intact in her left lower extremity. DIAGNOSES: Left knee end-stage osteoarthritis, hypertension, hypercholesterolemia. PLAN: The patient was advised of her diagnosis. Indications, risks, benefits, postop course have all been reviewed. The patient wished to proceed with a left total knee arthroplasty. Necessary consent forms, preoperative testing and clearances will be obtained.
[~2019-06-11 08:36] MED LIST: ACETAMINOPHEN 500 MG TAB PO SCH; BUPIVACAINE 0.25% 30 ML VIAL ONE; BUPIVACAINE 0.5 % 5 MG/1 ML PF 10ML VIAL ONE; CEFAZOLIN 2000MG 2,000 MG/15 ML SYR IV SCH; CeleBREX 200 MG CAP PO SCH; FAMOTIDINE 20 MG TAB PO SCH; GABAPENTIN 300 MG CAP PO SCH; LR 15ML/HR IV SCH; METOCLOPRAMIDE HCL 10 MG TABLET PO SCH; MIDAZOLAM HCL 1 MG/ML 2ML VIAL ONE; ROPIVACAINE 0.5% HCL/PF 150 MG, BUPIVACAINE 0.5% MPF 30 ML, EPINEPHrine 30MG/30ML (OR U... INFIL SCH; TRANEXAMIC ACID 1,000 MG **IV Intra-op IV SCH; TRANEXAMIC ACID 1,000 MG **IV Pre-op IV SCH; dexAMETHasone 4 MG TAB PO SCH; fentaNYL citrate 100 MCG/2 ML VIAL ONE
[2019-06-11] MEDS ORDERED: LIDOCAINE HCL 2% 2 ML VIAL/AMP(20MG/ML) INFIL ONE (08:45)
[2019-06-11] MEDS ORDERED: PROPOFOL IV EMULSION 10 MG/ML 20 ML VIAL IV ONE (08:45)
[2019-06-11] MEDS ORDERED: ONDANSETRON INJ 2 MG/ML 2 ML VIAL ONE (08:46)
--- NOTE | 2019-06-11 09:04 | History & Physical Bridge Note ---
Date of Service June 11, 2019 History & Physical Bridge Note I have examined the patient, reviewed the History & Physical and in the interval since the performance of the History & Physical I have noted the following changes of clinical significance: no changes noted
[2019-06-11] MEDS ORDERED: BACITRACIN INJ 50,000 UNIT VIAL ONE (09:56)
[2019-06-11] MEDS ORDERED: ORTHO JOINT ANESTHETIC ONE (09:56)
[2019-06-11] MEDS ORDERED: ePHEDrine sulfate 50 MG/ML AMP IV PRN (09:58)
[2019-06-11] MEDS ORDERED: fentaNYL citrate 100 MCG/2 ML VIAL IV PRN (09:58)
[2019-06-11] MEDS ORDERED: ATROPINE SULFATE 0.1 MG/ML 10ML SYR IV PRN (09:58)
[2019-06-11] MEDS ORDERED: ONDANSETRON INJ 2 MG/ML 2 ML VIAL IV PRN ×2 (09:58→15:31)
[2019-06-11] MEDS ORDERED: PHENYLEPHRINE 100MCG/ML 5ML SYR ONE (13:17)
--- NOTE | 2019-06-11 14:18 | Post Operative Brief Note ---
Immediate Post Op Note v1 Date of Surgery June 11, 2019 Pre & Post Diagnosis Operation Date: 06/11/19 11:10 Pre-Op Diagnosis: Left Knee Osteoarthritis Post-Op Diagnosis: Left Knee Osteoarthritis Procedure Operation Date: 06/11/19 11:10 Actual Procedures p Left Total Knee Arthroplasty(Left) - Deangelo Connor MD Surgeon Deangelo Connor MD Racebook Writer Philip ROBLES Estimated Blood Loss 5 Findings Consistent with Post-Op Diagnosis Specimens Bone cuts Drains Hemovac Drain Anesthesia Type MAC Spinal Regional Complications none Disposition Accompanied Patient To Recovery: No Disposition: Recovery Room Overlapping Procedure I was present for: the critical portions of procedure.
--- NOTE | 2019-06-11 14:57 | XRay Report ---
XR knee LT 2V routine CLINICAL HISTORY: Surgical Post Op COMPARISON: Left tibia and fibula radiographs January 28, 2018. FINDINGS: Alignment of the total left knee arthroplasty is anatomic. There is no fracture or unexpec marilou radiopaque foreign body. There are skin estrella and surgical drains. IMPRESSION: Expected findings following total left knee arthroplasty. Electronically signed by: Vimal Patterson M.D. 06/11/2019 2:55 PM
--- NOTE | 2019-06-11 15:09 | Anesthesiology Progress Note ---
Date of Service June 11, 2019 Anesthesia Post Procedure Vital Signs Vital Signs: Temp Pulse Pulse Resp BP Pulse Ox 06/11/19 15:05 36.9 C 84 16 130/78 93 06/11/19 14:55 87 16 134/63 93 06/11/19 14:45 80 16 114/67 93 06/11/19 14:39 37.3 C 86 16 104/60 95 06/11/19 09:23 36.7 C 84 20 127/68 96 Transfer of Care Handoff Completed per policy Notes Mental Status: alert / awake / arousable and participated in evaluation Nausea / Vomiting: adequately controlled Pain: adequately controlled Airway Patency, RR, SpO2: stable & adequate BP & HR: stable & adequate Hydration State: stable & adequate Neuraxial Anesthesia: was administered and sensory block is resolving Anesthetic Complications: no major complications apparent and Pt Satisfied with anesthetic care
[2019-06-11] MEDS ORDERED: SENNA 8.6 MG TAB PO PRN (15:31)
[2019-06-11] MEDS ORDERED: NALOXONE HCL 0.4 MG/1 ML VIAL/CARP IV PRN (15:31)
[2019-06-11] MEDS ORDERED: SODIUM CHLORIDE 0.9% 1000ML 1,000 ML IV SCH (15:31)
[2019-06-11] MEDS ORDERED: MAGNESIUM HYDROXIDE SUSP 30 ML UDC PO PRN (15:31)
[2019-06-11] MEDS ORDERED: HYDROmorphone INJ 0.5 MG/0.5 ML SYR IV PRN (15:31)
[2019-06-11] MEDS ORDERED: bisacodyL 10 MG SUPP PR PRN (15:31)
[2019-06-11] MEDS ORDERED: FAMOTIDINE 20 MG TAB PO PRN (15:31)
[2019-06-11] MEDS ORDERED: MECLIZINE HCL 25 MG TAB PO PRN (15:31)
[2019-06-11] MEDS ORDERED: PHARMACY GLYCEMIC MGMT CONSULT PRN (15:53)
[2019-06-11] MEDS ORDERED: DEXTROSE 50% 50 ML SYRINGE IV PRN (16:00)
[2019-06-11] MEDS ORDERED: GLUCAGON FOR INJ 1 MG VIAL IM PRN (16:00)
[2019-06-11] MEDS ORDERED: CARBOHYDRATES FOR HYPOGLYCEMIA PO PRN (16:00)
[2019-06-11] MEDS ORDERED: GLUCOSE 40% GEL 15 GM TUBE PO PRN (16:00)
[2019-06-11] MEDS ORDERED: GLUCOSE 10 TABS/TUBE PO PRN (16:00)
--- NOTE | 2019-06-11 16:22 | Pharmacy Report ---
Glycemic Control Consultation - Date of Service June 11, 2019 - Scope Scope: Glycemic Pharmacist consulted by Philip Jo PA-C on 06/11/19 for glycemic control and to write orders per [facility] inpatient glycemic control protocol - Objective Weight: 93.95 kg HbA1c: Hemoglobin A1c 5.7 % (4.5-5.6) H 05/15/19 11:03 - Recent Pertinent Medications Outpatient Anti-diabetic Regimen: * None * A1c = 5.7 % [05/15/19] Risk Factors for Insulin Resistance: * Steroids: Decadron 8 mg PO Preop x1 + Ortho joint injection * Infection: Ancef 2 gm Q8h x 2 doses * IVF: NS @ 100 ml/hr * Recent Surgery: L TKA today * Diet: T2DM - Assessment & Plan Assessment & Plan: ASSESSMENT: * 73 y/o F admitted for L TKA. Patient does not have a PMH significant for Diabetes. HbA1c = 5.7%. She was not on any anti-diabetic meds [employer]. * Pharmacy is consulted for glycemic management while pt is admitted. We will utilize SQ basal bolus insulin regimen which is the recommended regimen for inpatient glycemic control. Will initiate weight based insulin dosing for insulin chelsea patient and titrate based on BSG trends. * Novolog SQ has been ordered based on weight and stress between 1 and 2 per SQ insulin calculator. PLAN FOR INPATIENT GLYCEMIC CONTROL: * Basal insulin: Will order either Lantus or NPH insulin if BSG trends high tonight. * Bolus insulin * NovoLog per scale ACHS or Q6hrs while NPO * Goal Range: Low 110 mg/dL - High 140 mg/dL * Correction Factor: 35 mg/dL/unit * Nutritional / Prandial insulin per carb ratio of 1 unit per 10 grams CHO consumed * Please note that the plan above was derived based on current level of insulin resistance and hospital stress. These recommendations are appropriate for inpatient admission only. Plan of care upon discharge will need to be reassessed to avoid potential outpatient hypo/hyperglycemia. Thank you.
--- NOTE | 2019-06-11 17:29 | Operative Report ---
Post Operative Report Pre & Post Diagnosis Operation Date: 06/11/19 11:10 Pre-Op Diagnosis: Left Knee Osteoarthritis Post-Op Diagnosis: Left Knee Osteoarthritis Procedure Operation Date: 06/11/19 11:10 Actual Procedures p Left Total Knee Arthroplasty(Left) - Deangelo Connor MD Surgeon Deangelo Connor MD Salesperson Sheet Music Philip ROBLES Estimated Blood Loss 5 Findings Consistent with Post-Op Diagnosis Specimens Bone cuts Drains 2 Hemovac Anesthesia Type MAC Spinal Regional Complications none Disposition Accompanied Patient To Recovery: No Disposition: Recovery Room Indications 73-year female with progressive severe osteophytes her left knee medial compartment. [id number] medial compartment some bone loss. She has successful right knee replacement the past. Now presents for left knee replacement. Description of Procedure Patient taken to the operating room the size under spinal MAC regional anesthesia. Patient was placed supine on the operating table. A pneumatic tourniquet was placed about the left upper thigh. The left lower extremity was prepped and draped in sterile fashion. Knee exam demonstrated flexion con tracture about 10 degrees further flexion about 125 degrees. No instability.. The leg was elevated exsanguinated with an Esmarch bandage and pneumatic tourniquet was raised to 325 millimeters of mercury. Skin incised sharply in longitudinal fashion. Subcutaneous flaps elevated. Incision was made through the medial retinaculum extending up in the mid third of the quadriceps tendon and down to the medial tibial tubercle. Intra-articular findings demonstrated osteoarthritis medial compartment and patellofemoral joint with grade 4 osteoarthritis medial compartment with bone loss. There are posterior medial osteophytes on the femoral condyle. There is grade 4 medial patellofemoral DJD.. The [employer] triathlon total knee arthroplasty system was used. To expose the knee the infrapatellar fat pad was resected. The meniscal remnants and cruciate ligaments were resected. The anterior fat pad over the femur in the area of the anterior flange of the femoral component was resected. Lateral synovial bands release. The femur was exposed. An intramedullary drill hole was made into the canal. A guide daniela was placed. Distal femoral cutting guide was adjusted to resect a 5 degree valgus cut with 10 millimeters distal femur resected. The knee was extended and a subperiosteal peel lateral release was performed around the patella. Patella width was measured and width was reproduced using a freehand cut technique and a 33 x 9 symmetrical patella component. The 3 drill holes were made and the excess lateral facet was beveled off to prevent any impingement. Attention was taken back to the femur which was exposed with retractors and the femoral sizing guide was pinned in position. The drill holes were placed in 3 of external rotation to match epicondylar axis. Femur sized for a 4 component. We used the 1.5 mm adjustment to prevent notching anteriorly. The 4-in-1 cutting block was placed and then the anterior posterior and chamfer cuts are made. The tibia was then subluxed. The external tibial cutting guide was just to make a perpendicular cut to the long axis of the tibia below the most deficient bone loss side. A lamina hard metals engraver hand was used and the flexion extension gaps were balanced. All posterior osteophytes removed. All meniscal remnants were resected. The tibia exposed and the trial tibial component size 3 was externally rotated in line with the tibial tubercle and pinned in position. The punch for stem was used. The notch cutting device was centered appropriately and the femoral notch cut was made. The femoral trial was inserted. Drill holes for the pegs were used due to some relative osteopenia. Trial tibial inserts were placed and size 13 gave balanced ligaments through flexion and extension. Patella tracking was assessed. The patella tracked centrally. The trial components were then removed and the orthomix anesthetic cocktail was injected per protocol. The knee was then copiously irrigated with pulsatile lavage antibiotic solution. Final components were then cemented with Simplex cement. Final components were triathlon size 4 left femur with femoral distal fixation pegs, 3 primary tibial baseplate, 13 x 3 mm posterior stabilized tibial polyethylene insert, X3 symmetrical patella 33 x 9. While the cement cured the Betadine soak was used per protocol. After cement cured further pulsatile lavage irrigation performed and 2 Hemovac drains were brought out laterally. The quadriceps tendon and medial retinaculum were closed with figure of 8 #1 Vicryl sutures. The knee was taken through full range of motion and the repair was secure. The subcutaneous tissues were closed with 2-0 Vicryl sutures. Skin was closed with estrella. Sterile dressings were applied. Patient procedure well. Philip ROBLES was my physician financial administrative assistant who assisted in patient positioning prepping and draping,leg positioning ,soft tissue retraction and instrument management and participated in the closing and will participate in postoperative care of the patient. The patient tolerated the procedure well. I attest to the content of the Intraoperative Record and any orders documented therein. Any exceptions are noted below.
[2019-06-11] MEDS: INSULIN ASPART 100 UNITS/ML 3 ML PEN SC SCH ×2 (18:27→21:33)
[2019-06-11] MEDS ORDERED: INFLUENZA VIRUS QUAD VACCINE 0.5 ML SYR IM ONE (19:00)
[2019-06-11] MEDS ORDERED: INFLUENZA ADMINISTRATION CHARGE ONE (19:00)
[2019-06-11] MEDS: CEFAZOLIN 2000MG 2,000 MG/15 ML SYR IV SCH (19:34)
[2019-06-11] MEDS: DOCUSATE SODIUM 100 MG CAP PO SCH (20:36)
[2019-06-11] MEDS: CeleBREX 200 MG CAP PO SCH (20:36)
[2019-06-11] MEDS: ASPIRIN 81 MG ECTAB PO SCH (20:36)
[2019-06-11] MEDS: SENNA 8.6 MG TAB PO SCH (20:37)
--- NOTE | 2019-06-11 21:16 | Hospitalist Consultation ---
Date of Consultation June 11, 2019 Assessment & Plan (1) Right knee DJD: 73 y/o F who was admitted on 06/11 s/p L TKA with Dr. Connor Pre-op Hb 13.6 As per ortho (2) DM2 (diabetes mellitus, type 2): Diet controlled A1c 5.7 (3) Essential hypertension: continue home meds (4) PUD (peptic ulcer disease): Hx of PUD s/p NSAIDs No recent issues on famotidine continue home meds (5) RADHA (obstructive sleep apnea): States she has not used a CPAP in many years She tried to repeat sleep study but could not sleep States she was told what data they did get reveal no longer with ARDHA (6) DVT prophylaxis: As per ortho History of Present Illness Attending Physician: Deangelo Connor MD History of Present Illness 73 y/o F who was admitted on 06/11 s/p L TKA with Dr. Connor. Pt is doing well post-op. Tolerating PO without issue. Pt denies fever, SOB, chest pain, abd pain, n/v/c/d, LE swelling or pain. She has no pain related to her knee yet, but she has minimal feeling to her toes still. Allergies Allergy/AdvReac Type Severity Reaction Status Date / Time No Known Allergies Allergy Verified 06/11/19 09:03 Home Medications Home Medications Medication Instructions Recorded Confirmed Type cholecalciferol (vitamin D3) 3 cap PO DAILY 12/16/18 06/11/19 History [Vitamin D3] cyanocobalamin (vitamin B-12) 2,500 mcg SUBLINGUAL DAILY 12/16/18 06/11/19 History [Vitamin B-12] losartan 100 mg PO QAM 12/16/18 06/11/19 History meclizine 25 mg PO DAILY PRN 12/16/18 06/11/19 History polyethylene glycol 3350 [Miralax] 17 g PO QAM 12/16/18 06/11/19 History sennosides [Senokot] 2 tab PO HS PRN 12/16/18 06/11/19 History tramadol 50 - 100 mg PO Q4H PRN #40 tab 01/02/19 06/11/19 Rx famotidine 20 mg PO TID PRN 04/29/19 06/11/19 History hydrochlorothiazide 12.5 mg PO QAM 04/29/19 06/11/19 History ibuprofen 600 mg PO TID PRN 04/29/19 06/11/19 History Patient History Medical History Peptic ulcer disease HX Acid reflux CONTROLLED Bone spur of foot LEFT S/P CORTISONE INJECTION 12/06/18 H. pylori infection HX (2018) History of kidney stones History of pneumonia 10/2018 "RESOLVED" S/P ABX- F/U CXR UNREMARKABLE History of sleep apnea DX 20 YRS AGO BUT MORE RECENT SLEEP STUDY WAS "NORMAL" PER PT Hypertension Obesity Osteoarthritis Surgical History History of esophagogastroduodenoscopy (EGD) History of total knee replacement RIGHT Nausea and vomiting after administration of anesthetic agent History of lumpectomy of left breast (Acute) History of appendectomy History of colonoscopy History of dilatation and curettage History of gynecologic surgery ENTEROCELE REPAIR History of hysterectomy HYSTERECTOMY, RECTOCELE REPAIR AND BLADDER MESH Family History Father Family history of bone cancer Brother Family history of colon cancer Sister Family history of thyroid cancer Other Family history of breast cancer in mother Social History Preferred Language: Turkish Communication Ability: Effective Oxyacetylene Welder Required: No Beliefs That Will Affect Care: None Current Living Situation: Alone Other Information That Helps Us Care for You: No Feels Safe at Home: Yes Safety Concerns: Feels Safe At This Time Smoking Status: Never smoker Do You Dip or Chew Tobacco: No ; Second Hand Exposure: No ; Tobacco Cessation Education Requested by Patient: No Hx Alcohol Use: No Hx Substance Use: No Review of Systems Review of Systems: Pertinent positives and negatives reviewed in HPI--all others negative Physical Exam Constitutional: WD/WN, vitals as above Eyes: normal visual mccarthy by confrontation and + anicteric sclerae Neck: normal visual inspection and trachea midline Respiratory: normal respiratory effort, lungs clear to auscultation Cardiovascular: Rate/Rhythm: regular rate and regular rhythm Gastrointestinal (Abdomen): Inspection/Auscultation: abdomen not distended Percussion/Palpation: abdomen soft; abdomen nontender Musculoskeletal: Head/Neck/Chest: normocephalic and head atraumatic negative for edema, peripheral pulses intact Skin: no rashes, warm and dry Neurologic: awake; not confused Speech / Cognition: normal speech Psychiatric: A+Ox3, euthymic affect Results & Data Vital Signs (Past 12 Hours) Vital Signs Temp Pulse Pulse Resp BP Pulse Ox 06/11/19 18:34 36.5 C 87 17 123/74 92 06/11/19 17:19 36.6 C 85 16 135/81 98 06/11/19 16:36 74 16 146/85 H 97 06/11/19 15:50 79 16 116/74 96 06/11/19 15:20 36.7 C 81 16 116/68 93 06/11/19 15:05 36.9 C 84 16 130/78 93 06/11/19 14:55 87 16 134/63 93 06/11/19 14:45 80 16 114/67 93 06/11/19 14:39 37.3 C 86 16 104/60 95 06/11/19 09:23 36.7 C 84 20 127/68 96 PG Care Time/CCT Total # of Minutes Spent Total Time Spent with Patient: Total time spent is greater than 50% in coordination of care (as documented) at patient's floor/unit and/or counseling patient:
[2019-06-11] MEDS: ACETAMINOPHEN 500 MG TAB PO SCH (21:39)
[2019-06-11] MEDS: OXYCODONE HCL IR 5 MG TAB (IMMEDIATE RELEASE) PO PRN (21:39)
[2019-06-12] MEDS: CEFAZOLIN 2000MG 2,000 MG/15 ML SYR IV SCH (05:00)
[2019-06-12] MEDS: ACETAMINOPHEN 500 MG TAB PO SCH ×3 (05:11→21:19)
[2019-06-12] MEDS: OXYCODONE HCL IR 5 MG TAB (IMMEDIATE RELEASE) PO PRN ×3 (05:13→22:12)
[2019-06-12 06:27] LABS: Hematocrit (blood only) 35.4 % (37-47); Hemoglobin 11.5 g/dL (12.0-16.0); Mean Corpuscular Hemoglobin 29.2 pg (25-34); Mean Corpuscular Hgb Conc 32.5 g/dL (32-36); Mean Corpuscular Volume 89.8 fL (80-100); Mean Platelet Volume 9.8 fL (7.4-10.4); Platelet Count 285 K/uL (130-400); RDW Coefficient of Variation 12.8 % (11.5-14.5); RDW Standard Deviation 41.9 fL (36.4-46.3); Red Blood Count 3.94 M/uL (4.2-5.4); White Blood Count 11.75 K/uL (4.8-10.8)
[2019-06-12 06:56] LABS: BUN Creatinine Ratio 18.2 (10-20); Calcium 9.2 mg/dl (8.5-10.1); Creatinine Clr Calc Pharmacy 57.8 ml/min; Est GFR (African American) 70.2; Est GFR (Non-African American) 60.5; Potassium 4.7 mmol/L (3.5-5.1)
--- NOTE | 2019-06-12 08:20 | Orthopedic Progress Note ---
Date of Service June 12, 2019 Assessment & Plan (1) Arthritis of left knee: POD #1, Left TKA PT/ OT DVT proph- ASA D/C planning- [facility], likely Sunday due to need for 3 night stay. As per medicine. Subjective POD #1, Doing well. Denies SOB, CP, N/V Pain controlled well. Requesting [facility]. Physical Exam Physical Exam: Left knee dressings c/d/i, no drainage. Drain in tact. Toes/ ankle mobile. No calf tenderness. A&Ox3. Results & Data Vital Signs (Past 12 Hours) Vital Signs Temp Pulse Resp BP BP Pulse Ox 06/12/19 07:19 36.5 C 70 16 102/60 92 06/12/19 03:40 36.5 C 75 16 110/73 96 06/11/19 23:15 36.6 C 76 16 101/66 92
--- NOTE | 2019-06-12 08:48 | Anesthesiology Progress Note ---
Date of Service June 12, 2019 Anesthesia Post Procedure Vital Signs Vital Signs: Temp Pulse Pulse Resp BP BP Pulse Ox 06/12/19 07:19 36.5 C 70 16 102/60 92 06/12/19 03:40 36.5 C 75 16 110/73 96 06/11/19 23:15 36.6 C 76 16 101/66 92 06/11/19 18:34 36.5 C 87 17 123/74 92 06/11/19 17:19 36.6 C 85 16 135/81 98 06/11/19 16:36 74 16 146/85 H 97 06/11/19 15:50 79 16 116/74 96 06/11/19 15:20 36.7 C 81 16 116/68 93 06/11/19 15:05 36.9 C 84 16 130/78 93 06/11/19 14:55 87 16 134/63 93 06/11/19 14:45 80 16 114/67 93 06/11/19 14:39 37.3 C 86 16 104/60 95 06/11/19 09:23 36.7 C 84 20 127/68 96 Notes Mental Status: alert / awake / arousable and participated in evaluation Patient Amnestic to Procedure: Yes Nausea / Vomiting: adequately controlled Pain: adequately controlled Airway Patency, RR, SpO2: stable & adequate BP & HR: stable & adequate Hydration State: stable & adequate Neuraxial Anesthesia: was administered and sensory block resolved Anesthetic Complications: no major complications apparent and Pt Satisfied with anesthetic care
[2019-06-12] MEDS ORDERED: LOSARTAN POTASSIUM 50 MG TAB PO SCH (09:00)
[2019-06-12] MEDS ORDERED: hydroCHLOROthiazide 25 MG TAB PO SCH ×2 (09:00)
[2019-06-12] MEDS: CeleBREX 200 MG CAP PO SCH ×2 (09:02→21:18)
[2019-06-12] MEDS: DOCUSATE SODIUM 100 MG CAP PO SCH ×2 (09:03→21:22)
[2019-06-12] MEDS: ASPIRIN 81 MG ECTAB PO SCH ×2 (09:03→21:21)
[2019-06-12] MEDS: MULTIVITAMIN TAB PO SCH (09:23)
[2019-06-12] MEDS: POLYETHYLENE (MIRALAX) 17 GM PACK PO SCH (09:24)
[2019-06-12] MEDS: CYANOCOBALAMIN (VITAMIN B-12) 2,500 MCG TAB.SUBL SL SCH (09:24)
[2019-06-12] MEDS: CHOLECALCIFEROL 1,000 UNITS TAB PO SCH (09:24)
[2019-06-12] MEDS: TRAMADOL HCL 50 MG TABLET PO PRN ×2 (09:27→13:31)
[2019-06-12] MEDS: INSULIN ASPART 100 UNITS/ML 3 ML PEN SC SCH ×4 (09:28→22:07)
--- NOTE | 2019-06-12 12:56 | Hospitalist Progress Note ---
Date of Service June 12, 2019 Assessment & Plan (1) Arthritis of left knee: - S/p left TKA on 06/11, POD#1. - Pain management per ortho -- avoid NSAIDs due to h/o PUD. - Monitor CBC daily for acute blood loss. - PT/OT evaluation. - DVT ppx with ASA 81 mg BID. (2) Leukocytosis: - Likely steroid induced related to Decadron IV. - Monitor CBC daily. (3) Prediabetes: - Most recent A1C was 5.7; is diet controlled, not on meds at home. - SSI coverage -- has steroid induced hyperglycemia during this admission 2/2 Decadron pre-op. (4) Essential hypertension: - Was hypotensive this morning -- holding home HCTZ and Losartan. - Will continue to monitor -- bolus prn if indicated. (5) PUD (peptic ulcer disease): - H/o NSAID induced PUD. - Caution in setting of ASA 81 mg BID for DVT ppx. - Start PPI 40 mg daily - recommend resuming home Famotidine at discharge. (6) RADHA (obstructive sleep apnea): - Has not used a CPAP in many years. (7) DVT prophylaxis: - ASA 81 mg BID. Dispo: Med/surg; will continue to follow, please call with any questions. Supervising Physician Co-Signing Physician Notes Chart reviewed, case discussed with Kiki PATEL. Agree with decision making and plan. Care as above. Subjective Pt. is doing well -- has mild pain in left knee post op. Denies chest pain, SOB. Is not passing gas, has not had a BM. BP was low this morning -- held anti- hypertensives. Review of Systems Review of Systems: All systems reviewed & are unremarkable except as noted in HPI & below Constitutional: no fever, no chills, no fatigue and no weakness Respiratory: no cough, no dyspnea, no dyspnea on exertion and no wheezing Cardiovascular: no chest pain, no palpitations and no edema Gastrointestinal: + constipation; no abdominal pain and no nausea Genitourinary: no difficulty urinating Musculoskeletal: + joint pain; no back pain Integumentary: no non-healing lesions Physical Exam Physical Exam: General: Resting comfortably HEENT: NC/AT; PERRLA with EOMI; [place] conjunctiva, MMM. No erythema of posterior pharynx Neck: Supple and nontender Cardiac: RRR Lungs: CTA bilaterally Abdomen: Bowel normoactive X 4; Nontender to palpation Extremities: Warm. No edema present. Dressing in place over left knee. Neuro: No focal weakness Skin: No rash Results & Data Vital Signs (Past 12 Hours) Vital Signs Temp Pulse Resp BP BP Pulse Ox 06/12/19 09:02 95/59 L 06/12/19 07:19 36.5 C 70 16 102/60 92 06/12/19 03:40 36.5 C 75 16 110/73 96 Laboratory Results 06/12/19 06/12/19 06/12/19 Range/Units 12:37 07:59 06:00 WBC (4.8-10.8) K/uL RBC (4.2-5.4) M/uL Hgb (12.0-16.0) g/dL Hct (37-47) % MCV (80-100) fL MCH (25-34) pg MCHC (32-36) g/dL RDW Std Deviation (36.4-46.3) fL RDW Coeff of Beau (11.5-14.5) % Plt Count (130-400) K/uL MPV (7.4-10.4) fL Sodium 138 (136-145) mmol/L Potassium 4.7 (3.5-5.1) mmol/L Chloride 107 (98-107) mmol/L Carbon Dioxide 26 (21-32) mmol/L Anion Gap 5.0 (3-11) BUN 17 (7-18) mg/dl Creatinine 0.93 (0.6-1.2) mg/dl Est Cr Clr Drug Dosing 57.8 ml/min Est GFR ( Amer) 70.2 Est GFR (Non-Af Amer) 60.5 BUN/Creatinine Ratio 18.2 (10-20) Glucose 129 H (70-99) mg/dl POC Glucose 78 117 H (70-99) Calcium 9.2 (8.5-10.1) mg/dl 06/12/19 06/11/19 06/11/19 Range/Units 06:00 20:29 17:14 WBC 11.75 H (4.8-10.8) K/uL RBC 3.94 L (4.2-5.4) M/uL Hgb 11.5 L (12.0-16.0) g/dL Hct 35.4 L (37-47) % MCV 89.8 (80-100) fL MCH 29.2 (25-34) pg MCHC 32.5 (32-36) g/dL RDW Std Deviation 41.9 (36.4-46.3) fL RDW Coeff of Beau 12.8 (11.5-14.5) % Plt Count 285 (130-400) K/uL MPV 9.8 (7.4-10.4) fL Sodium (136-145) mmol/L Potassium (3.5-5.1) mmol/L Chloride (98-107) mmol/L Carbon Dioxide (21-32) mmol/L Anion Gap (3-11) BUN (7-18) mg/dl Creatinine (0.6-1.2) mg/dl Est Cr Clr Drug Dosing ml/min Est GFR ( Amer) Est GFR (Non-Af Amer) BUN/Creatinine Ratio (10-20) Glucose (70-99) mg/dl POC Glucose 136 H 130 H (70-99) Calcium (8.5-10.1) mg/dl PG Care Time/CCT Total # of Minutes Spent Total Time Spent with Patient: Total time spent is greater than 50% in coordination of care (as documented) at patient's floor/unit and/or counseling patient:
[2019-06-12] MEDS: PANTOprazole 40 MG TAB PO SCH (14:35)
--- NOTE | 2019-06-12 15:20 | Pharmacy Report ---
Pharmacy Glycemic Short Note 2 - Date of Service June 12, 2019 - Glycemic Short BSG Results (Last 24 hours): 06/11/19 06/11/19 06/12/19 17:14 20:29 06:00 Glucose 129 H POC Glucose 130 H 136 H 06/12/19 06/12/19 07:59 12:37 Glucose POC Glucose 117 H 78 OUTPATIENT ANTIDIABETIC REGIMEN: * None ASSESSMENT: * 73 y/o F admitted for L TKA, today is POD #1. * HbA1c = 5.7% on 05/15/19. Patient is not a diabetic and not on any anti- diabetic meds at home. * BSGs were within goal yesterday even after she had received Decadron 8 mg PO pre-op. Fasting BSG = 117 this AM. * Patient received total of 2 units of Novolog insulin yesterday to cover her carbs for dinner. * Basal insulin was not ordered for her at all yesterday. * After a lunch BSG = 78 was obtained (pt had already started eating a little when this BSG was checked), the carb ratio was removed so that she does not get any more insulin unless she is above her goal. PLAN FOR INPATIENT GLYCEMIC CONTROL: * Bolus insulin * NovoLog per scale ACHS or Q6hrs while NPO * Goal Range: Low 110 mg/dL - High 140 mg/dL * Correction Factor: 35 mg/dL/unit * Nutritional / Prandial insulin: None PLAN FOR DISCHARGE: * HbA1c = 5.7% - patient is at goal and do not need to be on anti-diabetic meds.
[2019-06-12] MEDS: SENNA 8.6 MG TAB PO SCH (21:20)
[2019-06-13] MEDS: ACETAMINOPHEN 500 MG TAB PO SCH ×3 (05:40→21:27)
[2019-06-13 07:00] LABS: Hematocrit (blood only) 37.4 % (37-47); Mean Corpuscular Hemoglobin 28.9 pg (25-34); Mean Corpuscular Hgb Conc 32.1 g/dL (32-36); Mean Corpuscular Volume 90.1 fL (80-100); Platelet Count 297 K/uL (130-400); RDW Coefficient of Variation 13.1 % (11.5-14.5); RDW Standard Deviation 42.9 fL (36.4-46.3); Red Blood Count 4.15 M/uL (4.2-5.4)
[2019-06-13 07:32] LABS: BUN Creatinine Ratio 22.7 (10-20); Calcium 9.3 mg/dl (8.5-10.1); Creatinine Clr Calc Pharmacy 47.2 ml/min; Est GFR (African American) 54.9; Est GFR (Non-African American) 47.3
[2019-06-13] MEDS: TRAMADOL HCL 50 MG TABLET PO PRN ×2 (07:45→23:06)
--- NOTE | 2019-06-13 07:45 | Orthopedic Progress Note ---
Date of Service June 13, 2019 Assessment & Plan (1) Arthritis of left knee: POD #2, Left TKA PT/ OT DVT proph- ASA D/C planning- [facility], likely Sunday due to need for 3 night stay. As per medicine. Subjective POD #2, Doing well. Denies SOB, CP, N/V Pain controlled well. Requesting [facility]. Did well in PT. Physical Exam Physical Exam: Left knee silverlon c/d/i, no drainage, no erythema. Toes/ ankle mobile. No calf tenderness. A&Ox3. Results & Data Vital Signs (Past 12 Hours) Vital Signs Temp Pulse Resp BP Pulse Ox 06/13/19 06:39 36.8 C 71 16 121/78 94 06/12/19 23:48 36.5 C 65 14 96/61 L 92
[2019-06-13] MEDS: MULTIVITAMIN TAB PO SCH (07:46)
[2019-06-13] MEDS: DOCUSATE SODIUM 100 MG CAP PO SCH ×2 (07:46→21:25)
[2019-06-13] MEDS: CHOLECALCIFEROL 1,000 UNITS TAB PO SCH (07:46)
[2019-06-13] MEDS: CeleBREX 200 MG CAP PO SCH ×2 (07:47→21:24)
[2019-06-13] MEDS: PANTOprazole 40 MG TAB PO SCH (07:47)
[2019-06-13] MEDS: INSULIN ASPART 100 UNITS/ML 3 ML PEN SC SCH ×4 (07:47→21:16)
[2019-06-13] MEDS: POLYETHYLENE (MIRALAX) 17 GM PACK PO SCH (07:47)
[2019-06-13] MEDS: ASPIRIN 81 MG ECTAB PO SCH ×2 (07:47→21:26)
[2019-06-13] MEDS: CYANOCOBALAMIN (VITAMIN B-12) 2,500 MCG TAB.SUBL SL SCH (07:47)
[2019-06-13] MEDS ORDERED: SODIUM CHLORIDE 0.9% 1000ML 1,000 ML IV ONE (08:20)
[2019-06-13] MEDS: OXYCODONE HCL IR 5 MG TAB (IMMEDIATE RELEASE) PO PRN (11:21)
--- NOTE | 2019-06-13 13:06 | Hospitalist Progress Note ---
Date of Service June 13, 2019 Assessment & Plan (1) Arthritis of left knee: - S/p left TKA on 06/11, POD#2. - Pain management per ortho; avoid NSAIDs due to h/o PUD. - Monitor CBC daily - H/H has been stable. - PT/OT evaluation - discharge to [facility] on Sunday. - DVT ppx with ASA 81 mg BID. (2) Elevated BUN: - BUN increased to 26, Cr also trending up -- related to dehydration in setting of poor PO intake. - Will give NS at 100 cc/hr, total of 1L. - Encourage PO fluid intake. - Monitor labs daily. (3) Leukocytosis: - Likely steroid induced related to Decadron IV. - Now resolved. (4) Prediabetes: - Most recent A1C was 5.7; is diet controlled, not on meds at home. - SSI coverage -- has steroid induced hyperglycemia during this admission 2/2 Decadron pre-op. (5) Essential hypertension: - Was hypotensive on 06/12, likely related to dehydration -- holding home HCTZ and Losartan. - Will continue to monitor; can resume oral meds on 06/14. (6) PUD (peptic ulcer disease): - H/o NSAID induced PUD. - Caution in setting of ASA 81 mg BID for DVT ppx. - PPI 40 mg daily - recommend resuming home Famotidine at discharge. (7) RADHA (obstructive sleep apnea): - Has not used a CPAP in many years. (8) DVT prophylaxis: - ASA 81 mg BID. Dispo: Med/surg; will sign off, please call with any questions. Subjective Pt is doing well overall. Does have left knee pain, increased after working with physical therapy. Has not been drinking adequate fluid intake -- will give 1L of IV fluids. She is passing gas, no BM yet. Review of Systems Review of Systems: All systems reviewed & are unremarkable except as noted in HPI & below Constitutional: + fatigue and + weakness; no fever, no chills and no anorexia Respiratory: no cough, no dyspnea, no dyspnea on exertion and no wheezing Cardiovascular: no chest pain, no palpitations and no edema Gastrointestinal: + constipation; no abdominal pain, no nausea and no vomiting Genitourinary: no dysuria, no difficulty urinating, no urinary frequency and no decreased urination Musculoskeletal: + joint pain; no back pain Integumentary: no non-healing lesions Physical Exam Physical Exam: General: Resting comfortably HEENT: NC/AT; PERRLA with EOMI; [place] conjunctiva, MMM. No erythema of posterior pharynx Neck: Supple and nontender Cardiac: RRR Lungs: CTA bilaterally Abdomen: Bowel normoactive X 4; Nontender to palpation Extremities: Warm. No edema present. Dressing in place on left knee. Neuro: No focal weakness Skin: No rash Results & Data Vital Signs (Past 12 Hours) Vital Signs Temp Pulse Resp BP Pulse Ox 06/13/19 06:39 36.8 C 71 16 121/78 94 Laboratory Results 06/13/19 06/13/19 06/13/19 Range/Units 12:00 06:38 06:12 WBC (4.8-10.8) K/uL RBC (4.2-5.4) M/uL Hgb (12.0-16.0) g/dL Hct (37-47) % MCV (80-100) fL MCH (25-34) pg MCHC (32-36) g/dL RDW Std Deviation (36.4-46.3) fL RDW Coeff of Beau (11.5-14.5) % Plt Count (130-400) K/uL MPV (7.4-10.4) fL Sodium 137 (136-145) mmol/L Potassium 4.0 (3.5-5.1) mmol/L Chloride 106 (98-107) mmol/L Carbon Dioxide 25 (21-32) mmol/L Anion Gap 6.0 (3-11) BUN 26 H D (7-18) mg/dl Creatinine 1.14 (0.6-1.2) mg/dl Est Cr Clr Drug Dosing 47.2 ml/min Est GFR ( Amer) 54.9 Est GFR (Non-Af Amer) 47.3 BUN/Creatinine Ratio 22.7 H (10-20) Glucose 97 (70-99) mg/dl POC Glucose 127 H 103 H (70-99) Calcium 9.3 (8.5-10.1) mg/dl 06/13/19 06/12/19 06/12/19 Range/Units 06:12 20:28 19:17 WBC 6.10 (4.8-10.8) K/uL RBC 4.15 L (4.2-5.4) M/uL Hgb 12.0 (12.0-16.0) g/dL Hct 37.4 (37-47) % MCV 90.1 (80-100) fL MCH 28.9 (25-34) pg MCHC 32.1 (32-36) g/dL RDW Std Deviation 42.9 (36.4-46.3) fL RDW Coeff of Beau 13.1 (11.5-14.5) % Plt Count 297 (130-400) K/uL MPV 10.0 (7.4-10.4) fL Sodium (136-145) mmol/L Potassium (3.5-5.1) mmol/L Chloride (98-107) mmol/L Carbon Dioxide (21-32) mmol/L Anion Gap (3-11) BUN (7-18) mg/dl Creatinine (0.6-1.2) mg/dl Est Cr Clr Drug Dosing ml/min Est GFR ( Amer) Est GFR (Non-Af Amer) BUN/Creatinine Ratio (10-20) Glucose (70-99) mg/dl POC Glucose 112 H 119 H (70-99) Calcium (8.5-10.1) mg/dl 06/12/19 Range/Units 17:18 WBC (4.8-10.8) K/uL RBC (4.2-5.4) M/uL Hgb (12.0-16.0) g/dL Hct (37-47) % MCV (80-100) fL MCH (25-34) pg MCHC (32-36) g/dL RDW Std Deviation (36.4-46.3) fL RDW Coeff of Beau (11.5-14.5) % Plt Count (130-400) K/uL MPV (7.4-10.4) fL Sodium (136-145) mmol/L Potassium (3.5-5.1) mmol/L Chloride (98-107) mmol/L Carbon Dioxide (21-32) mmol/L Anion Gap (3-11) BUN (7-18) mg/dl Creatinine (0.6-1.2) mg/dl Est Cr Clr Drug Dosing ml/min Est GFR ( Amer) Est GFR (Non-Af Amer) BUN/Creatinine Ratio (10-20) Glucose (70-99) mg/dl POC Glucose 106 H (70-99) Calcium (8.5-10.1) mg/dl PG Care Time/CCT Total # of Minutes Spent Total Time Spent with Patient: Total time spent is greater than 50% in coordination of care (as documented) at patient's floor/unit and/or counseling patient:
[2019-06-13] MEDS: SENNA 8.6 MG TAB PO SCH (21:26)
[2019-06-14] MEDS: ACETAMINOPHEN 500 MG TAB PO SCH (05:41)
[2019-06-14 06:04] LABS: Hematocrit (blood only) 32.6 % (37-47); Hemoglobin 10.7 g/dL (12.0-16.0); Mean Corpuscular Hemoglobin 29.6 pg (25-34); Mean Corpuscular Hgb Conc 32.8 g/dL (32-36); Mean Corpuscular Volume 90.1 fL (80-100); Mean Platelet Volume 9.7 fL (7.4-10.4); Platelet Count 265 K/uL (130-400); RDW Coefficient of Variation 13.1 % (11.5-14.5); RDW Standard Deviation 43.2 fL (36.4-46.3); Red Blood Count 3.62 M/uL (4.2-5.4); White Blood Count 5.18 K/uL (4.8-10.8)
[2019-06-14] MEDS: TRAMADOL HCL 50 MG TABLET PO PRN ×2 (06:37→11:32)
[2019-06-14 06:38] LABS: BUN Creatinine Ratio 26.6 (10-20); Calcium 8.6 mg/dl (8.5-10.1); Creatinine Clr Calc Pharmacy 68.1 ml/min; Est GFR (African American) 85.5; Est GFR (Non-African American) 73.7; Potassium 4.4 mmol/L (3.5-5.1)
--- NOTE | 2019-06-14 07:46 | Orthopedic Progress Note ---
Date of Service June 14, 2019 Assessment & Plan (1) Arthritis of left knee: POD #3, Left TKA PT/ OT DVT proph- ASA D/C planning- [facility] today. As per medicine. Subjective POD #3, Doing well. Denies SOB, CP, N/V Pain controlled well. Requesting [facility]. Did well in PT. Physical Exam Physical Exam: Left knee silverlon dressing c/d/i, no drainage, no erythema Toes/ ankle mobile. No calf tenderness. A&Ox3. Results & Data Vital Signs (Past 12 Hours) Vital Signs Temp Pulse Resp BP Pulse Ox 06/14/19 06:55 36.9 C 83 16 145/75 H 93 06/13/19 23:02 36.6 C 92 H 16 136/91 94
[2019-06-14] MEDS: CHOLECALCIFEROL 1,000 UNITS TAB PO SCH (07:54)
[2019-06-14] MEDS: POLYETHYLENE (MIRALAX) 17 GM PACK PO SCH (07:54)
[2019-06-14] MEDS: ASPIRIN 81 MG ECTAB PO SCH (07:55)
[2019-06-14] MEDS: MULTIVITAMIN TAB PO SCH (07:55)
[2019-06-14] MEDS: DOCUSATE SODIUM 100 MG CAP PO SCH (07:55)
[2019-06-14] MEDS: CYANOCOBALAMIN (VITAMIN B-12) 2,500 MCG TAB.SUBL SL SCH (07:55)
[2019-06-14] MEDS: PANTOprazole 40 MG TAB PO SCH (07:55)
[2019-06-14] MEDS: CeleBREX 200 MG CAP PO SCH (07:55)
[2019-06-14] MEDS: INSULIN ASPART 100 UNITS/ML 3 ML PEN SC SCH (07:58)
[2019-06-14] MEDS ORDERED: hydroCHLOROthiazide 25 MG TAB PO SCH (09:00)
[2019-06-14] MEDS ORDERED: LOSARTAN POTASSIUM 50 MG TAB PO SCH (09:00)
--- NOTE | 2019-06-17 14:22 | Discharge Summary ---
73-year-old female patient of Dr. Connor'domenico complaining of chronic left knee pain, longstanding, now progressively getting worse. The patient failed conservative treatment and elected to proceed with a left total knee arthroplasty. PAST MEDICAL HISTORY: Hypertension, hypercholesterolemia. POSTOPERATIVE COURSE: The patient underwent a left total knee arthroplasty on 06/11/2019. She was followed closely with physical therapy, pain control, DVT prophylaxis in the form of aspirin and medical consultation. The patient did very well postoperatively. She was discharged to [facility] on postoperative day #3. PHYSICAL EXAMINATION: On discharge, left knee Silverlon dressing was clean, dry and intact. There was no redness or drainage. Toes and ankle were mobile. She had no calf tenderness. Negative Homans sign. Neurologically and neurovascularly she was intact in her left lower extremity. DIAGNOSES: Left total knee arthroplasty, hypertension, hypercholesterolemia. PLAN: The patient was discharged to [facility] on postoperative day #3. She will continue her preadmission medications with the addition of aspirin for DVT prophylaxis as well as pain medications. The patient will follow up as scheduled as an outpatient.
== END 2019-06-14 12:21 | DRG 470 ==
LOC: ASU 08:36 → 3E 14:44